=== PATIENT | female | born 1990 | race African-American/Black ===

== ENCOUNTER 2017-03-09 08:21 | Emergency (ER) | payer MEDICAID, OTHER ==
[~2017-03-09] VITALS: Ht 157.5 cm; Wt 102.1 kg
[~2017-03-09 08:21] MED LIST: BACTRIM DS TAB1 EAC1 ORAL; BENADRYL50 MG ORAL; CLOTRIMAZOLE AF30 GM TOP; CLOTRIMAZOLE AF30 GM TOPIC; COLACE100 MG ORAL; DOC-Q-LACE100 M1 ORAL; HYDROCODON-ACE1 EA15 ORAL; HYDROCORTISONE28 G2 TP; IBUPROFEN600 MG ORAL; KEFLEX500 MG ORAL; NKM; NORCO 5-325 TA1 EACH ORAL; PRENATAL VITAM1 EAC4 PO; REGLAN10 MG ORAL; TRAMADOL HCL50 MG ORAL; TYLENOL325 MG ORAL
--- NOTE | 2017-03-09 08:56 | Emergency Room Report ---
History of Present Illness General Chief Complaint: Upper Respiratory Illness Source: Patient Present Illness HPI Patient presents with 2 weeks of upper respiratory symptoms and now with diarrhea. The diarrhea has been green. She's on her period right now and denies dysuria. Her has heard her wheezing (she has never used an inhaler in the past). The cough is keeping her awake at night. She states her son came home with an upper respiratory infection and she got this from him. She is able to keep down fluids. There is no vomiting. Just a slight sore throat. No chest pain, palpitations, headache. Achiness. Allergies: Uncoded Allergies: AMPICILLIN (Allergy, Severe, Anaphylaxis, 08/17/12) Patient History Past Medical History: see triage record Social History Narrative raising 2 children Last Menstrual Period: now Now: No Reviewed Nursing Documentation: PMH: Agreed, PSxH: Agreed Nursing Documentation-PMH Past Medical History: No Stated History Review of Systems All Other Systems: negative except mentioned in HPI Physical Exam Vital Signs Date Time Temp Pulse Resp B/P Pulse Ox O2 Delivery O2 Flow Rate FiO2 03/09/17 08:27 97.7 82 18 97 Room Air Sp02 EP Interpretation: reviewed, normal General Appearance: well appearing, no apparent distress, GCS 15 Head: normocephalic, atraumatic Eyes: bilateral eye PERRL, bilateral eye normal inspection ENT: hearing grossly normal, normal voice, TMs + canals normal, moist mucus membranes, pharyngeal erythema Neck: full range of motion, supple Respiratory: lungs clear, normal breath sounds, no respiratory distress, speaking full sentences Cardiovascular #1: regular rate, rhythm Gastrointestinal: normal bowel sounds, non tender, soft, no mass, overweight Musculoskeletal: digits/nails normal, gait/station normal, normal range of motion Neurologic: alert, grossly normal Psychiatric: mood/affect normal Skin: no rash Medical Decision Making Diagnostic Impression: Primary Impression: Viral syndrome ER Course The patient presents with 2 weeks of upper respiratory symptomatology and now with diarrhea. She denies any diarrhea and is not complaining of abdominal pain. There is no exudative pharyngitis at this time. The patient is nontoxic and also is not dehydrated. The combination suggests a viral syndrome. The patient will be treated symptomatically. Because of the allegations she's been wheezing at night albuterol will be added. She was instructed on how to use an inhaler. The patient is stable for outpatient observation and treatment. Last Vital Signs Date Time Temp Pulse Resp B/P Pulse Ox O2 Delivery O2 Flow Rate FiO2 03/09/17 09:15 97.7 18 115/70 97 Room Air 03/09/17 08:43 82 Status: unchanged Disposition: HOME, SELF-CARE Condition: Stable Scripts Chlorpheniramine Maleate (Chlorpheniramine Maleate) 4 Mg Tablet 4 MG PO Q6HR Y for congestion, #10 TAB Prov: Jose Herron M.D. 03/09/17 Ibuprofen* (MOTRIN*) 600 Mg Tablet 600 MG ORAL Q6H Y for For Pain, #16 TAB Prov: Jose Herron M.D. 03/09/17 Albuterol Sulfate* (ALBUTEROL SULFATE MDI*) 8.5 Gm Hfa.aer.ad 2 PUFF INH Q6H Y for wheezing/cough, #1 EA 0 Refills Prov: Jose Herron M.D. 03/09/17 Codeine/Promethazine Hcl* (PROMETHAZINE-CODEINE SYRUP*) 118 Ml Syrup 5 ML ORAL Q6H Y for For Cough, #60 ML 0 Refills Prov: Jose Herron M.D. 03/09/17 Jose Herron M.D. Mar 09, 2017 08:56
[2017-03-09] MEDS ORDERED: IBUPROFEN600 MG ORAL (09:01)
[2017-03-09] MEDS ORDERED: PROMETHAZINE-C118 M1 ORAL (09:01)
[2017-03-09] MEDS ORDERED: CHLORPHENIRAMINE4 M1 PO (09:01)
[2017-03-09] MEDS ORDERED: ALBUTEROL SULF8.5 GM INH (09:01)
[2017-03-09 09:15] VITALS: BP 115/70
== END 2017-03-09 09:15 | disposition home or self-care (01) ==
LOC: EMR 09:04
DX: B34.9 Viral infection, unspecified (principal); Z88.0 Allergy status to penicillin
CPT/HCPCS: 99284

== ENCOUNTER 2017-05-05 08:15 | Emergency (ER) | payer OTHER ==
[~2017-05-05] VITALS: Ht 157.5 cm; Wt 108.9 kg
[~2017-05-05 08:15] MED LIST changes: +ALBUTEROL SULF8.5 GM INH; +CHLORPHENIRAMINE4 M1 PO; +PROMETHAZINE-C118 M1 ORAL
--- NOTE | 2017-05-05 08:37 | Emergency Room Report ---
History of Present Illness General Chief Complaint: Vaginal Source: Patient Present Illness HPI Patient is a 27-year-old female presented after increased vaginal bleeding. Patient reported being approximately 9 months. As she currently breast-feeding. Patient stated that she has not been feeling dizzy or lightheaded. She reported having moderate bleeding. As she hadn't having reported continued bleeding for approximately one month. Patient had been continued to take vitamins. Allergies: Uncoded Allergies: AMPICILLIN (Allergy, Severe, Anaphylaxis, 08/17/12) Patient History Past Medical History: see triage record Last Menstrual Period: now Reviewed Nursing Documentation: PMH: Agreed, PSxH: Agreed Nursing Documentation-PMH Past Medical History: No Stated History Review of Systems All Other Systems: negative except mentioned in HPI Physical Exam Vital Signs Date Time Temp Pulse Resp B/P Pulse Ox O2 Delivery O2 Flow Rate FiO2 05/05/17 08:21 98.2 89 18 117/79 100 Room Air Sp02 EP Interpretation: reviewed, normal General Appearance: normal inspection, well appearing, no apparent distress, alert, GCS 15, non-toxic, obese Head: atraumatic ENT: normal ENT inspection, hearing grossly normal, normal voice Neck: normal inspection, full range of motion, supple, no bony tend Respiratory: normal inspection, lungs clear, normal breath sounds, no respiratory distress, no retraction, no wheezing Cardiovascular #1: regular rate, rhythm, no edema Gastrointestinal: normal inspection, normal bowel sounds, non tender, soft, no guarding, no hernia Genitourinary: no CVA tenderness Musculoskeletal: normal inspection, back normal, normal range of motion Neurologic: normal inspection, alert, oriented x3, responsive, shipping and receiving operator III-XII nml as tested, speech normal Psychiatric: normal inspection, judgement/insight normal, mood/affect normal Skin: normal inspection, normal color, no rash Medical Decision Making ER Course Patient presented for vaginal bleeding. Differential diagnosis included was not limited to threatened , retained products of conception, fibroid uterus, menorrhagia, coagulopathy.Because of complexity of patient's case laboratory testing and imaging studies were ordered. Patient noted have symptoms consistent with menometrorrhagia. Laboratory testing was notable for adequate hemoglobin. The patient is advised to follow up with primary care doctor in 1-2 days. Patient is advised to return if any worsening condition or if any changes in status that are concerning. Last Vital Signs Date Time Temp Pulse Resp B/P Pulse Ox O2 Delivery O2 Flow Rate FiO2 05/05/17 08:21 98.2 89 18 117/79 100 Room Air Status: improved Disposition: HOME, SELF-CARE Condition: Stable Fernando Julain May 05, 2017 08:37
[2017-05-05] MEDS ORDERED: Tubing IV Cassette IV ONE (08:53)
[2017-05-05 09:08] LABS: APPEARANCE,URINE CLEAR; BASOPHILS % (AUTO) 0.8 % (0.0-2.0); KETONES,URINE NEGATIVE (NEGATIVE); LEUKOCYTE ESTERASE ,URINE NEGATIVE (NEGATIVE); LYMPHOCYTES % (AUTO) 36.7 % (20.0-45.0); MEAN CORPUSCULAR HEMOGLOBIN 25.3 PG (27.0-31.0); MEAN CORPUSCULAR HGB CONC 31.9 G/DL (32.0-36.0); MEAN CORPUSCULAR VOLUME 79 FL (80-99); MEAN PLATELET VOLUME 7.2 FL (6.5-10.1); NEUTROPHILS % (AUTO) 53.6 % (45.0-75.0); NITRITE,URINE NEGATIVE (NEGATIVE); PH,URINE 7 (4.5-8.0); PLATELET COUNT 312 K/UL (150-450); PROTEIN,URINE NEGATIVE (NEGATIVE); RED BLOOD COUNT 4.56 M/UL (4.20-5.40); RED CELL DISTRIBUTION WIDTH 13.4 % (11.6-14.8); UROBILINOGEN,URINE NORMAL MG/DL (0.0-1.0); WHITE BLOOD COUNT 7.6 K/UL (4.8-10.8)
[2017-05-05 09:14] LABS: ALANINE AMINOTRANSFERASE 14 U/L (3-33); ALBUMIN/GLOBULIN RATIO 1.1 (1.0-2.7); ANION GAP 15 (5-15); ASPARTATE AMINO TRANSFERASE 13 U/L (5-40); CARBON DIOXIDE 24 mEQ/L (20-30); CHLORIDE 99 mEQ/L (98-107); CREATININE 0.6 mg/dL (0.5-0.9); GLOMERULAR FILTRATION RATE > 60 mL/min (>60); HEMOLYSIS 0; LIPASE 19 U/L (< 60); POTASSIUM 3.7 mEQ/L (3.4-4.9); SODIUM 138 mEQ/L (135-145); TOTAL PROTEIN 7.8 g/dL (6.6-8.7)
[2017-05-05 09:17] LABS: PROTHROMBIN TIME 10.1 SEC (9.30-11.50)
[2017-05-05 09:19] LABS: BACTERIA,URINE FEW /HPF; RBC,URINE 20-30 /HPF (0 - 2); SQUAMOUS EPITHELIAL CELL,UR FEW /LPF (NONE/OCC); WBC,URINE 0-2 /HPF (0 - 2)
[2017-05-05 09:30] VITALS: BP 126/87
[2017-05-05 09:45] VITALS: BP 126/87
== END 2017-05-05 09:46 | disposition home or self-care (01) ==
LOC: EMR 08:41
DX: N93.9 Abnormal uterine and vaginal bleeding, unspecified (principal); Z88.0 Allergy status to penicillin
CPT/HCPCS: 36415; 80053; 81003; 83690; 84702; 85025; 85610; 85730; 96374; 99284; J7040

== ENCOUNTER 2017-08-14 08:57 | Emergency (ER) | payer MEDICAID, OTHER ==
[~2017-08-14] VITALS: Ht 157.5 cm; Wt 116.1 kg
--- NOTE | 2017-08-14 09:45 | Emergency Room Report ---
History of Present Illness General Chief Complaint: Skin Rash/Abscess Source: Patient Present Illness HPI Patient presents with complaints of 2 areas on her skin area better concerning patient complains of an infection in the back of her neck she also noticed a possible infection in between the breasts The neck discomfort/rash has been off-and-on over the past 2 months Patient also noticed the area in between the breast area over the past 6-8 weeks Denies any fevers or chills Denies any discharge Denies any chest pain or shortness of breath Allergies: Uncoded Allergies: AMPICILLIN (Allergy, Severe, Anaphylaxis, 08/17/12) Patient History Past Medical History: see triage record Pertinent Family History: none Last Menstrual Period: Aig 25 Now: No Reviewed Nursing Documentation: PMH: Agreed, PSxH: Agreed Nursing Documentation-PMH Past Medical History: No Stated History Review of Systems All Other Systems: negative except mentioned in HPI Physical Exam Vital Signs Date Time Temp Pulse Resp B/P (MAP) Pulse Ox O2 Delivery O2 Flow Rate FiO2 08/14/17 09:05 97.9 91 12 132/88 99 Room Air Sp02 EP Interpretation: reviewed, normal General Appearance: well appearing, no apparent distress Head: normocephalic, atraumatic Eyes: bilateral eye PERRL, bilateral eye EOMI ENT: hearing grossly normal, normal pharynx, TMs + canals normal, uvula midline Neck: full range of motion, supple Respiratory: chest non-tender, lungs clear Cardiovascular #1: regular rate, rhythm Musculoskeletal: normal inspection Neurologic: alert, oriented x3, responsive Skin: other - The region in the neck posteriorly, patient shows increased thickening area of the skin fold no obvious fluctuance or erythema, the area just in the midsternal him mildly deviated on the left aspect, small erythematous skin tag/lesion, does not appear vascular no obvious fluctuance, fairly well localized , Lymphatic: no adenopathy Medical Decision Making Diagnostic Impression: Primary Impression: Rash and other nonspecific skin eruption ER Course The areas in question are somewhat nonspecific The area in the posterior neck could be in line with a small skin break resulting in a early cellulitis The lesion in between the breast area is possibly secondary to skin irritation I do not suspect obvious infectious pathology Dermatology followup is required for further evaluation of carcinomatous lesions , Last Vital Signs Date Time Temp Pulse Resp B/P (MAP) Pulse Ox O2 Delivery O2 Flow Rate FiO2 08/14/17 09:05 97.9 91 12 132/88 99 Room Air Status: unchanged Disposition: HOME, SELF-CARE Condition: Stable Referrals: [facility] NIXON,REFERRING (PCP) Additional Instructions: Patient is provided with the discharge instructions notified to follow up with primary doctor in the next 2-3 days otherwise return to the er with any worsening symptoms. Please note that this report is being documented using [employer] technology. This can lead to erroneous entry secondary to incorrect interpretation by the dictating instrument. ZANDRA RAE D.O. Aug 14, 2017 09:45
[2017-08-14] MEDS ORDERED: BACTRIM DS TAB1 EAC1 ORAL (09:47)
[2017-08-14] MEDS ORDERED: NYSTATIN-TRIAMC15 G2 TP (09:48)
[2017-08-14 09:57] VITALS: BP 128/85
== END 2017-08-14 09:57 | disposition home or self-care (01) ==
LOC: EMR 09:21
DX: R21 Rash and other nonspecific skin eruption (principal); Z88.0 Allergy status to penicillin
CPT/HCPCS: 99282

== ENCOUNTER 2017-08-26 09:42 | Emergency (ER) | payer MEDICAID ==
[~2017-08-26] VITALS: Ht 157.5 cm; Wt 116.1 kg
[~2017-08-26 09:42] MED LIST changes: +NYSTATIN-TRIAMC15 G2 TP
[2017-08-26 09:50] VITALS: BP 120/70
[2017-08-26] MEDS ORDERED: IBUPROFEN600 MG ORAL ×2 (10:25→10:44)
[2017-08-26] MEDS ORDERED: Ketorolac 60mg Inj IM ONE (10:30)
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
== END 2017-08-26 10:45 | disposition home or self-care (01) ==
LOC: EMR 10:36
DX: M54.2 Cervicalgia (principal); R07.9 Chest pain, unspecified; Z88.8 Allergy status to other drugs, medicaments and biological substances; M54.5 Low back pain
CPT/HCPCS: 96372; 99284

== ENCOUNTER 2017-11-03 08:59 | Emergency (ER) | payer MEDICAID ==
[~2017-11-03] VITALS: Ht 157.5 cm; Wt 116.1 kg
[2017-11-03 09:09] VITALS: BP 117/73
[2017-11-03] MEDS ORDERED: NKM (09:19)
[2017-11-03] MEDS ORDERED: ADULT WAL-100 MG/5 M ORAL ×2 (09:25→09:29)
[2017-11-03] MEDS ORDERED: CLARITIN10 M2 ORAL ×2 (09:25→09:29)
[2017-11-03 09:39] VITALS: BP 117/73
--- NOTE | 2017-11-07 08:14 | Emergency Room Report ---
History of Present Illness General Chief Complaint: Upper Respiratory Illness Source: Patient Present Illness HPI Patient is a 27 year old female who presented to the emergency department for increased nasal congestion, and nonproductive cough gradual onset over the past two days. Son had been sick with similar symptoms. She denied or . She denied any chest pain or leg swelling. Cough was intermittent. She had clear nasal discharge. Allergies: Coded Allergies: AMPICILLIN (Verified Allergy, Severe, Anaphylaxis, 11/03/17) Uncoded Allergies: AMPICILLIN (Allergy, Severe, Anaphylaxis, 08/17/12) Patient History Past Medical History: old chart reviewed Last Menstrual Period: - Now: No Reviewed Nursing Documentation: PMH: Agreed, PSxH: Agreed Nursing Documentation-PMH Past Medical History: No Stated History Review of Systems All Other Systems: negative except mentioned in HPI Physical Exam Vital Signs Date Time Temp Pulse Resp B/P (MAP) Pulse Ox O2 Delivery O2 Flow Rate FiO2 11/03/17 09:09 97.9 88 20 117/73 100 Room Air General Appearance: well appearing, no apparent distress, alert, GCS 15 Head: normocephalic, atraumatic ENT: hearing grossly normal, normal pharynx, normal voice, TMs + canals normal , uvula midline, other - rhinorhea Neck: full range of motion, supple Respiratory: normal inspection, lungs clear, normal breath sounds, no respiratory distress, speaking full sentences Cardiovascular #1: normal inspection, normal peripheral pulses, regular rate, rhythm, no edema Gastrointestinal: normal inspection Musculoskeletal: normal inspection, no calf tenderness Neurologic: normal inspection, alert, oriented x3, responsive, public health outreach worker III-XII nml as tested, normal gait Psychiatric: mood/affect normal Skin: no rash Medical Decision Making Diagnostic Impression: Primary Impression: Viral respiratory infection ER Course Patient presented for increased cough and nasal congestion. Differential diagnosis included but was not limited to sinusitis. pneumonia, congestive heart failure, bronchitis, asthma among others. Patient was noted to have a benign exam. Patient doesn't appear to have any respiratory difficulty and has a benign exam and history. Patient appears to have a viral upper respiratory infection. Patient was given a prescription for cough syrup and antihistamine. She was advised to recheck with her physician in 2-3 days. She was to return for high fever, increased difficulty breathing, chest pain or other concerns. Last Vital Signs Date Time Temp Pulse Resp B/P (MAP) Pulse Ox O2 Delivery O2 Flow Rate FiO2 11/03/17 09:39 97.9 88 20 117/73 100 Room Air Status: improved Disposition: HOME, SELF-CARE Condition: Stable Scripts Guaifenesin* (ADULT WAL-TUSSIN*) 100 Mg/5 Ml Liquid 10 ML ORAL Q4H, #120 ML Prov: Fernando Julian 11/03/17 Loratadine (CLARITIN) 10 Mg Capsule 10 MG ORAL DAILY, #30 CAP Prov: Fernando Julian 11/03/17 Patient Instructions: Upper Respiratory Infection, Adult Fernando Julian Nov 07, 2017 08:14
== END 2017-11-03 09:40 | disposition home or self-care (01) ==
LOC: EMR 09:20
DX: J06.9 Acute upper respiratory infection, unspecified (principal); B34.9 Viral infection, unspecified; Z88.0 Allergy status to penicillin
CPT/HCPCS: 99283

== ENCOUNTER 2017-12-07 06:16 | Emergency (ER) | payer MEDICAID ==
[~2017-12-07] VITALS: Ht 157.5 cm; Wt 116.1 kg
[~2017-12-07 06:16] MED LIST changes: +ADULT WAL-100 MG/5 M ORAL; +CLARITIN10 M2 ORAL
[2017-12-07 06:30] VITALS: BP 135/89
[2017-12-07] MEDS ORDERED: FLOXIN10 ML BOTH EARS (06:47)
[2017-12-07 06:50] VITALS: BP 132/89
[2017-12-07 06:55] VITALS: BP 132/89
--- NOTE | 2017-12-07 08:19 | Emergency Room Report ---
History of Present Illness General Chief Complaint: Earache Source: Patient Present Illness HPI 27-year-old female presents ED complaining of bilateral ear pain x 3 days. Right worse than left., Throbbing, nonradiating. Denies any discharge. Denies any sore throat or cough. Denies any sick contacts or recent travel. No other aggravating relieving factors. Denies any other associated symptoms Allergies: Coded Allergies: AMPICILLIN (Verified Allergy, Severe, Anaphylaxis, 11/03/17) Patient History Past Medical History: none Past Surgical History: none Pertinent Family History: none Social History: Denies: smoking, alcohol use, drug use Last Menstrual Period: 2016 Now: No Immunizations: UTD Reviewed Nursing Documentation: PMH: Agreed, PSxH: Agreed Nursing Documentation-PMH Past Medical History: No Stated History Review of Systems All Other Systems: negative except mentioned in HPI Physical Exam Vital Signs Date Time Temp Pulse Resp B/P (MAP) Pulse Ox O2 Delivery O2 Flow Rate FiO2 12/07/17 06:23 98.2 91 15 141/98 99 Room Air Sp02 EP Interpretation: reviewed, normal General Appearance: no apparent distress, alert, GCS 15, non-toxic Head: normocephalic Eyes: bilateral eye normal inspection, bilateral eye PERRL ENT: hearing grossly normal, normal pharynx, no angioedema, normal voice, other - swollen ear canals bilaterally. TM unremarkable Neck: full range of motion, supple/symm/no masses Respiratory: chest non-tender, lungs clear, normal breath sounds, speaking full sentences Cardiovascular #1: regular rate, rhythm, no edema Gastrointestinal: normal inspection Rectal: deferred Genitourinary: no CVA tenderness Musculoskeletal: normal inspection Neurologic: alert, oriented x3, responsive, motor strength/tone normal, sensory intact, speech normal Psychiatric: normal inspection Skin: normal inspection Lymphatic: normal inspection Medical Decision Making Diagnostic Impression: Primary Impression: Otitis externa Qualified Codes: H60.503 - Unspecified acute noninfective otitis externa, bilateral ER Course Hospital Course 27-year-old F presents to ED with pain bilateral ears Differential diagnoses include: TM perforation, otitis externa, otitis media Clinical course Patient placed on stretcher. After initial history, physical exam reveals a female in no acute distress. bilateral ear canal swollen, erythematous. TM unremarkable. consistent with otitis externa Diagnosis - otitis externa Stable and discharged to home with Rx ofloxacin otic. Followup with PMD. Return to ED if symptoms recur or worsen Last Vital Signs Date Time Temp Pulse Resp B/P (MAP) Pulse Ox O2 Delivery O2 Flow Rate FiO2 12/07/17 06:55 98.2 79 17 132/89 99 Room Air Status: improved Disposition: HOME, SELF-CARE Condition: Stable Scripts Ofloxacin (Floxin) 10 Ml Drops 10 DROP BOTH EARS DAILY for 7 Days, ML Prov: ADALI CORTEZ M.D. 12/07/17 Referrals: [facility],REFERRING (PCP) Patient Instructions: Otitis Externa, [id number] ADALI CORTEZ M.D. Dec 07, 2017 08:19
== END 2017-12-07 06:55 | disposition home or self-care (01) ==
LOC: EMR 06:38
DX: H60.93 Unspecified otitis externa, bilateral (principal); Z88.0 Allergy status to penicillin
CPT/HCPCS: 99283

== ENCOUNTER 2018-02-16 16:31 | Emergency (ER) | payer MEDICAID ==
[~2018-02-16] VITALS: Ht 157.5 cm; Wt 119.3 kg
[~2018-02-16 16:31] MED LIST changes: +FLOXIN10 ML BOTH EARS
--- NOTE | 2018-02-16 17:07 | Emergency Room Report ---
History of Present Illness General Chief Complaint: Foreign Body Source: Patient Present Illness HPI 28-year-old female presents to the emergency department complaining of retained cotton from Q-tip since this morning. Patient reports she was cleaning her ear and when she pulled the Q-tip out the cotton was missing. Patient states she attempted to remove the cotton with a remaining piece of toothpick but was unsuccessful. Patient denies pain, discharge, fevers, chills. Patient denies loss of hearing or muffled hearing. This was recently treated for otitis externa . Denies CP, Palpitations, LOC, AMS, dizziness, Changes in Vision, Sensation, paresthesias, or a sudden severe headache. Allergies: Coded Allergies: AMPICILLIN (Verified Allergy, Severe, Anaphylaxis, 11/03/17) Patient History Past Medical History: see triage record, asthma Past Surgical History: none Pertinent Family History: none Last Menstrual Period: 2-25 Now: No Reviewed Nursing Documentation: PMH: Agreed, PSxH: Agreed Review of Systems All Other Systems: negative except mentioned in HPI Physical Exam Vital Signs Date Time Temp Pulse Resp B/P (MAP) Pulse Ox O2 Delivery O2 Flow Rate FiO2 02/16/18 16:42 98.4 86 18 123/72 97 Room Air 98.4 Sp02 EP Interpretation: reviewed, normal General Appearance: no apparent distress, alert, GCS 15, non-toxic Head: normocephalic, atraumatic Eyes: bilateral eye normal inspection, bilateral eye PERRL ENT: hearing grossly normal, normal voice, other - obvious cotton Fb in the Right ear. no evidence of infection or trauma to the external canal. Neck: full range of motion Respiratory: lungs clear, speaking full sentences Cardiovascular #1: regular rate, rhythm Musculoskeletal: back normal, gait/station normal, normal range of motion Neurologic: alert, oriented x3, responsive, normal gait, speech normal, grossly normal Psychiatric: judgement/insight normal Skin: normal color, no rash, warm/dry, well hydrated Lymphatic: no adenopathy Procedures Additional Procedure Procedure Narrative After verbal consent obtained by PT. Single attempt with alligator forceps was made to remove foreign body and was successful by Dr. Julian Medical Decision Making PA Attestation Dr. Julian is my supervising Physician whom patient management has been discussed with. Diagnostic Impression: Primary Impression: Ear foreign body Qualified Codes: T16.1XXA - Foreign body in right ear, initial encounter ER Course 28-year-old female presents to the emergency department complaining of retained cotton from Q-tip since this morning. Patient reports she was cleaning her ear and when she pulled the Q-tip out the cotton was missing. Patient states she attempted to remove the cotton with a remaining piece of toothpick but was unsuccessful. Patient denies pain, discharge, fevers, chills. Patient denies loss of hearing or muffled hearing. This was recently treated for otitis externa . Denies CP, Palpitations, LOC, AMS, dizziness, Changes in Vision, Sensation, paresthesias, or a sudden severe headache. Ddx considered but are not limited to OM, OE, mastoiditis, TM perforation, FB Vital signs: are WNL, pt. is afebrile H&PE are most consistent with foreign body of the left ear ORDERS: none required at this time, the diagnosis is clinical -OTOSCOPY: obvious cotton Fb in the Right ear. no evidence of infection or trauma to the external canal. ED INTERVENTIONS: after verbal consent obtained by PT. Single attempt with alligator forceps was made to remove foreign body and was successful by Dr. Julian DISCHARGE: At this time pt. is stable for d/c to home. Will provide printed patient care instructions, and any necessary prescriptions. Care plan and follow up instructions have been discussed with the patient prior to discharge. D/w followup with ENT specialist for removal. Last Vital Signs Date Time Temp Pulse Resp B/P (MAP) Pulse Ox O2 Delivery O2 Flow Rate FiO2 02/16/18 16:42 98.4 86 18 123/72 97 Room Air 98.4 Disposition: HOME, SELF-CARE Condition: Stable Patient Instructions: Ear Foreign Body Additional Instructions: Take medications as directed. Follow up with a Primary Care Provider in 3-5 days, even if your symptoms have resolved. --Please review list of primary care clinics, if you do not already have a primary care provider Return sooner to ED if new symptoms occur, or current symptoms become worse. - Please note that this Emergency Department Report was dictated using [employer] teacher technology software, occasionally this can lead to erroneous entry secondary to interpretation by the dictation equipment. Berta Santos Feb 16, 2018 17:07
[2018-02-16 17:15] VITALS: BP 123/72
[2018-02-16 17:17] VITALS: BP 123/72
== END 2018-02-16 17:00 | disposition home or self-care (01) ==
LOC: EMR 17:00
DX: T16.1XXA Foreign body in right ear, initial encounter (principal); Z88.1 Allergy status to other antibiotic agents; X58.XXXA Exposure to other specified factors, initial encounter; Y92.9 Unspecified place or not applicable
CPT/HCPCS: 99282

== ENCOUNTER 2018-11-05 08:13 | Emergency (ER) | payer MEDICAID ==
[~2018-11-05] VITALS: Ht 157.5 cm; Wt 98.0 kg
[2018-11-05 08:34] VITALS: BP 110/70
--- NOTE | 2018-11-05 08:54 | Emergency Room Report ---
History of Present Illness General Chief Complaint: Upper Respiratory Illness Source: Patient Present Illness ZORAIDA Buckley is a healthy 28 yo female with cold symptoms for 1-2 days. She had nasal congestion, cough, nausea, diarrhea and mild chest pain with cough. NO pain currently. No fever. NO chills. No abd pain. Two children at home with similar symptoms. Allergies: Coded Allergies: AMPICILLIN (Verified Allergy, Severe, Anaphylaxis, 11/03/17) Patient History Past Medical History: see triage record Social History: Denies: smoking Last Menstrual Period: 10/02/18 Reviewed Nursing Documentation: PMH: Agreed; PSxH: Agreed Nursing Documentation-PMH Past Medical History: No Stated History Review of Systems Constitutional: Denies: fever, malaise ENT: Reports: ear pain, nose congestion; Denies: throat pain Respiratory: Reports: cough; Denies: shortness of breath, wheezing Cardiovascular: Reports: chest pain Gastrointestinal: Denies: abdominal pain Musculoskeletal: Denies: back pain Neurological: Denies: headache Physical Exam Vital Signs Date Time Temp Pulse Resp B/P (MAP) Pulse Ox O2 Delivery O2 Flow Rate FiO2 11/05/18 08:20 98.1 87 18 110/70 95 Room Air Sp02 EP Interpretation: reviewed, normal, other - well-appearing, General Appearance: no apparent distress, alert, GCS 15, non-toxic Head: normocephalic, atraumatic Eyes: bilateral eye normal inspection ENT: hearing grossly normal, normal pharynx, no angioedema, normal voice, TMs + canals normal Neck: full range of motion, supple/symm/no masses Respiratory: chest non-tender, lungs clear, normal breath sounds, speaking full sentences Cardiovascular #1: regular rate, rhythm, no edema Gastrointestinal: normal bowel sounds, non tender, soft, non-distended, no guarding, no rebound Rectal: deferred Genitourinary: normal inspection, no CVA tenderness Musculoskeletal: back normal, gait/station normal, normal range of motion, non- tender, calf tenderness Neurologic: alert, oriented x3, responsive, motor strength/tone normal, sensory intact, speech normal Psychiatric: judgement/insight normal, memory normal, mood/affect normal, no suicidal/homicidal ideation Skin: normal color, no rash, warm/dry, well hydrated Lymphatic: no adenopathy Medical Decision Making Diagnostic Impression: Primary Impression: Viral respiratory infection Additional Impression: URI (upper respiratory infection) ER Course Ms. Holden presents with URI without otitis, pneumonia or pharyngitis. rx: loratadine She appears well and healthy on today's exam. Last Vital Signs Date Time Temp Pulse Resp B/P (MAP) Pulse Ox O2 Delivery O2 Flow Rate FiO2 11/05/18 08:34 87 18 Room Air 11/05/18 08:34 98.1 110/70 95 Disposition: HOME, SELF-CARE Condition: Stable Referrals: [facility],REFERRING (PCP) Claudia Holden MD Nov 05, 2018 08:54
[2018-11-05] MEDS ORDERED: LORATADINE10 M2 PO (08:55)
[2018-11-05 09:02] VITALS: BP 112/72
== END 2018-11-05 09:04 | disposition home or self-care (01) ==
LOC: EMR 08:30
DX: J06.9 Acute upper respiratory infection, unspecified (principal); B34.9 Viral infection, unspecified; Z88.0 Allergy status to penicillin
CPT/HCPCS: 99282

== ENCOUNTER 2019-01-24 10:26 | Emergency (ER) | payer MEDICAID ==
[~2019-01-24] VITALS: Ht 157.5 cm; Wt 81.6 kg
[~2019-01-24 10:26] MED LIST changes: +LORATADINE10 M2 PO
--- NOTE | 2019-01-24 10:43 | NUR ---
ED Nurse Note: Pt came into the Er w/ complaints of abdominal pain w/ n,d,v since last night. Pt is complaining of 10/10 pain in the abdomen. Non radiating. A + O x4. Ambulatory. Skin warm to touch. Pt states that she had 10 episodes of vomiting and diarrhea.
[2019-01-24 10:45] VITALS: BP 115/70
[2019-01-24] MEDS ORDERED: Metoclopramide 10mg/2ml Inj IVP ONE (11:00)
[2019-01-24 11:12] LABS: HEMATOCRIT 34.4 % (37.0-47.0); HEMOGLOBIN 10.3 G/DL (12.0-16.0); MEAN CORPUSCULAR VOLUME 72 FL (80-99); PLATELET COUNT 327 K/UL (150-450); RED BLOOD COUNT 4.79 M/UL (4.20-5.40); RED CELL DISTRIBUTION WIDTH 15.6 % (11.6-14.8); WHITE BLOOD COUNT 12.3 K/UL (4.8-10.8)
[2019-01-24 11:24] LABS: ANION GAP 9 mmol/L (5-15); BLOOD UREA NITROGEN 11 mg/dL (7-18); CALCIUM 9.2 MG/DL (8.5-10.1); CARBON DIOXIDE 25 MMOL/L (21-32); CHLORIDE 103 MMOL/L (98-107); CREATININE 0.8 MG/DL (0.55-1.30); POTASSIUM 4.1 MMOL/L (3.5-5.1); SODIUM 137 MMOL/L (136-145)
[2019-01-24 11:28] LABS: ALANINE AMINOTRANSFERASE 19 U/L (12-78); ALBUMIN 3.7 G/DL (3.4-5.0); ALBUMIN/GLOBULIN RATIO 0.8 (1.0-2.7); ALKALINE PHOSPHATASE 84 U/L (46-116); ASPARTATE AMINO TRANSFERASE 11 U/L (15-37); BILIRUBIN,TOTAL 0.3 MG/DL (0.2-1.0)
[2019-01-24] MEDS ORDERED: ZOFRAN4 M1 ORAL (12:09)
[2019-01-24 12:16] VITALS: BP 116/75
--- NOTE | 2019-01-24 12:16 | NUR ---
ER DISCHARGE NOTE: Patient is cleared to be discharged per ERMD, pt is aox4, on room air, with stable vital signs. pt was given dc and prescription instructions, pt was able to verbalize understanding, pt id band and iv site removed without complications. pt is able to ambulate with steady gait. pt took all belongings.
--- NOTE | 2019-01-25 07:30 | Emergency Room Report ---
History of Present Illness General Chief Complaint: Abdominal Pain Source: Patient Present Illness HPI Patient presents with complaints of vomiting and diarrhea Reports multiple episodes of vomiting along with diarrhea since last night denies any chest pain or shortness of breath she has some diffuse abdominal cramping as well Patient's here with a family member who reports they ate outside yesterday and soon after that the patient became ill Denies any blood in the stool Denies any flank pain Allergies: Coded Allergies: AMPICILLIN (Verified Allergy, Severe, Anaphylaxis, 11/03/17) Patient History Past Medical History: see triage record Pertinent Family History: none Last Menstrual Period: 01/13/19 Reviewed Nursing Documentation: PMH: Agreed; PSxH: Agreed Nursing Documentation-PMH Past Medical History: No Stated History Review of Systems All Other Systems: negative except mentioned in HPI Physical Exam Vital Signs Date Time Temp Pulse Resp B/P (MAP) Pulse Ox O2 Delivery O2 Flow Rate FiO2 01/24/19 10:36 97.9 83 18 118/69 100 Room Air 01/24/19 10:45 100 Sp02 EP Interpretation: reviewed, normal General Appearance: well appearing, no apparent distress Head: normocephalic, atraumatic Eyes: bilateral eye PERRL, bilateral eye EOMI ENT: hearing grossly normal, normal pharynx, TMs + canals normal, uvula midline Neck: full range of motion, supple, no meningismus, no bony tend Respiratory: lungs clear, normal breath sounds, no rhonchi, no respiratory distress, no retraction, no accessory muscle use Cardiovascular #1: normal peripheral pulses, regular rate, rhythm, no edema, no gallop, no JVD, no murmur Gastrointestinal: normal bowel sounds, non tender, soft, no mass, no organomegaly, non-distended, no guarding, no hernia, no pulsatile mass, no rebound Genitourinary: no CVA tenderness Musculoskeletal: normal inspection Neurologic: oriented x3, responsive, biology specimen technician III-XII nml as tested, motor strength/ tone normal, sensory intact Psychiatric: mood/affect normal Skin: normal color, no rash, warm/dry, palpation normal Lymphatic: normal inspection, no adenopathy Medical Decision Making Diagnostic Impression: Primary Impression: vomiting Additional Impression: diarrhea ER Course With the patient's history and examination, multiple differentials considered, including but not limited to , ectopic , ovarian torsion, gastritis, cholecystitis, pancreatitis, appendicitis Given the vomiting and diarrhea gastrointestinal pathology also entertained patient had IV hydration and extensive blood work initiated Did not require initial imaging given her repeat examination Patient has done significantly better and stable for close outpatient follow-up Labs Test 01/24/19 10:36 01/24/19 11:38 White Blood Count 12.3 K/UL (4.8-10.8) Red Blood Count 4.79 M/UL (4.20-5.40) Hemoglobin 10.3 G/DL (12.0-16.0) Hematocrit 34.4 % (37.0-47.0) Mean Corpuscular Volume 72 FL (80-99) Mean Corpuscular Hemoglobin 21.6 PG (27.0-31.0) Mean Corpuscular Hemoglobin Concent 30.0 G/DL (32.0-36.0) Red Cell Distribution Width 15.6 % (11.6-14.8) Platelet Count 327 K/UL (150-450) Mean Platelet Volume 6.3 FL (6.5-10.1) Neutrophils (%) (Auto) % (45.0-75.0) Lymphocytes (%) (Auto) % (20.0-45.0) Monocytes (%) (Auto) % (1.0-10.0) Eosinophils (%) (Auto) % (0.0-3.0) Basophils (%) (Auto) % (0.0-2.0) Differential Total Cells Counted 100 Neutrophils % (Manual) 87 % (45-75) Lymphocytes % (Manual) 7 % (20-45) Monocytes % (Manual) 3 % (1-10) Eosinophils % (Manual) 0 % (0-3) Basophils % (Manual) 0 % (0-2) Band Neutrophils 3 % (0-8) Platelet Estimate Adequate Platelet Morphology Normal Hypochromasia 1+ Anisocytosis 1+ Microcytosis 1+ Sodium Level 137 MMOL/L (136-145) Potassium Level 4.1 MMOL/L (3.5-5.1) Chloride Level 103 MMOL/L (98-107) Carbon Dioxide Level 25 MMOL/L (21-32) Anion Gap 9 mmol/L (5-15) Blood Urea Nitrogen 11 mg/dL (7-18) Creatinine 0.8 MG/DL (0.55-1.30) Estimat Glomerular Filtration Rate > 60 mL/min (>60) Glucose Level 100 MG/DL (74-106) Calcium Level 9.2 MG/DL (8.5-10.1) Total Bilirubin 0.3 MG/DL (0.2-1.0) Aspartate Amino Transf (AST/SGOT) 11 U/L (15-37) Alanine Aminotransferase (ALT/SGPT) 19 U/L (12-78) Alkaline Phosphatase 84 U/L (46-116) Total Protein 8.3 G/DL (6.4-8.2) Albumin 3.7 G/DL (3.4-5.0) Globulin 4.6 g/dL Albumin/Globulin Ratio 0.8 (1.0-2.7) Lipase 64 U/L (73-393) Human Chorionic Gonadotropin, Qual Negative (NEGATIVE) Last Vital Signs Date Time Temp Pulse Resp B/P (MAP) Pulse Ox O2 Delivery O2 Flow Rate FiO2 01/24/19 12:16 98.0 66 18 116/75 100 Room Air 100 Status: improved Disposition: HOME, SELF-CARE Condition: Improved Scripts Ondansetron (Zofran) 4 Mg Tablet 4 MG ORAL Q6H PRN for Nausea & Vomiting, #12 TAB Prov: Heena Linton DO 01/24/19 Referrals: [facility],REFERRING (PCP) Patient Instructions: Nausea and Vomiting, Adult, [id number], Abdominal Pain , Adult, Diarrhea, Adult, [id number] Additional Instructions: Patient is provided with the discharge instructions notified to follow up with primary doctor in the next 2-3 days otherwise return to the er with any worsening symptoms. Please note that this report is being documented using ePAR technology. This can lead to erroneous entry secondary to incorrect interpretation by the dictating instrument. Heena Linton DO Jan 25, 2019 07:30
== END 2019-01-24 12:17 | disposition home or self-care (01) ==
LOC: EMR 11:41
DX: R11.10 Vomiting, unspecified (principal); R19.7 Diarrhea, unspecified; Z88.0 Allergy status to penicillin
CPT/HCPCS: 36415; 80053; 83690; 84703; 85007; 85025; 96361; 96374; 99284; J2765

== ENCOUNTER 2019-04-27 08:50 | Emergency (ER) | payer MEDICAID ==
[~2019-04-27] VITALS: Ht 157.5 cm; Wt 97.1 kg
[~2019-04-27 08:50] MED LIST changes: +ZOFRAN4 M1 ORAL
[2019-04-27 09:06] VITALS: BP 123/88
--- NOTE | 2019-04-27 09:06 | NUR ---
ED Nurse Note: PT FROM HOME CAME IN DUE TO N/V AND DIARRHEA STARTED LAST NIGHT. PT STATES THERE IS A SMALL AMOUNT OF STREAK BLOOD IN HER STOOL. PT AAO X4, AMBULATORY WITH NON LABORED BREATHING.
--- NOTE | 2019-04-27 09:24 | Emergency Room Report ---
History of Present Illness General Chief Complaint: Nausea, Vomiting, and Diarrhea Source: Patient Present Illness HPI Patient is a 29-year-old female who presented after increased nausea and vomiting. Patient reports having eaten some food at [id number] and subsequently having vomiting as well as diarrhea. She denies any fever. She reports having nonbloody emesis. She reports having some watery stools with some blood when she is wiping. She denies any severe abdominal pain but reports having some increased pain to the left lower abdomen which she describes crampy in nature. Allergies: Coded Allergies: AMPICILLIN (Verified Allergy, Severe, Anaphylaxis, 11/03/17) Patient History Past Medical History: see triage record Last Menstrual Period: 5-17 Now: No Reviewed Nursing Documentation: PMH: Agreed; PSxH: Agreed Nursing Documentation-PMH Past Medical History: No Stated History Review of Systems All Other Systems: negative except mentioned in HPI Physical Exam Vital Signs Date Time Temp Pulse Resp B/P (MAP) Pulse Ox O2 Delivery O2 Flow Rate FiO2 04/27/19 08:59 98.6 71 20 132/70 (90) 100 Room Air Sp02 EP Interpretation: reviewed, normal General Appearance: normal inspection, well appearing, no apparent distress, alert, GCS 15, non-toxic Head: atraumatic ENT: normal ENT inspection, hearing grossly normal, normal voice Neck: normal inspection, full range of motion, supple, no bony tend Respiratory: normal inspection, lungs clear, normal breath sounds, no respiratory distress, no retraction, no wheezing Cardiovascular #1: regular rate, rhythm, no edema Gastrointestinal: normal inspection, normal bowel sounds, non tender, soft, no guarding, no hernia Genitourinary: no CVA tenderness Musculoskeletal: normal inspection, back normal, normal range of motion Neurologic: normal inspection, alert, oriented x3, responsive, composition floor layer III-XII nml as tested, speech normal Psychiatric: normal inspection, judgement/insight normal, mood/affect normal Skin: normal inspection, normal color, no rash Medical Decision Making ER Course Patient presented for abdominal pain. Differential diagnoses included ischemic bowel, appendicitis, perforated viscus, abdominal aortic aneurysm, inferior myocardial infarction, viral gastroenteritis among others. Because of complexity of patient's case laboratory tests were ordered. Last Vital Signs Date Time Temp Pulse Resp B/P (MAP) Pulse Ox O2 Delivery O2 Flow Rate FiO2 04/27/19 08:59 98.6 71 20 132/70 (90) 100 Room Air Fernando Julian MD April 27, 2019 09:23
[2019-04-27] MEDS ORDERED: Dicyclomine HCl 10mg/5ml oral soln ORAL ONE (09:30)
[2019-04-27] MEDS ORDERED: Lidocaine 2% Visc 15ml soln ORAL ONE (09:30)
[2019-04-27 09:59] LABS: APPEARANCE,URINE CLEAR; BILIRUBIN, URINE NEGATIVE (NEGATIVE); COLOR,URINE PALE YELLOW; GLUCOSE, URINE (UA) NEGATIVE (NEGATIVE); KETONES,URINE 1+ (NEGATIVE); LEUKOCYTE ESTERASE ,URINE NEGATIVE (NEGATIVE); NITRITE,URINE NEGATIVE (NEGATIVE); PH,URINE 8 (4.5-8.0); PROTEIN,URINE NEGATIVE (NEGATIVE); UROBILINOGEN,URINE NORMAL MG/DL (0.0-1.0)
[2019-04-27 10:03] LABS: BASOPHILS % (AUTO) 0.5 % (0.0-2.0); EOSINOPHILS % (AUTO) 0.4 % (0.0-3.0); HEMATOCRIT 31.5 % (37.0-47.0); HEMOGLOBIN 9.5 G/DL (12.0-16.0); LYMPHOCYTES % (AUTO) 20.3 % (20.0-45.0); MEAN CORPUSCULAR VOLUME 69 FL (80-99); MONOCYTES % (AUTO) 3.9 % (1.0-10.0); NEUTROPHILS % (AUTO) 74.8 % (45.0-75.0); PLATELET COUNT 285 K/UL (150-450); RED BLOOD COUNT 4.59 M/UL (4.20-5.40); RED CELL DISTRIBUTION WIDTH 15.7 % (11.6-14.8); WHITE BLOOD COUNT 6.7 K/UL (4.8-10.8)
[2019-04-27 10:10] LABS: ANION GAP 10 mmol/L (5-15); BLOOD UREA NITROGEN 6 mg/dL (7-18); CALCIUM 8.8 MG/DL (8.5-10.1); CARBON DIOXIDE 26 MMOL/L (21-32); CHLORIDE 104 MMOL/L (98-107); CREATININE 0.7 MG/DL (0.55-1.30); POTASSIUM 3.6 MMOL/L (3.5-5.1); SODIUM 139 MMOL/L (136-145)
[2019-04-27 10:13] LABS: ALANINE AMINOTRANSFERASE 22 U/L (12-78); ALBUMIN 3.7 G/DL (3.4-5.0); ALBUMIN/GLOBULIN RATIO 0.9 (1.0-2.7); ALKALINE PHOSPHATASE 74 U/L (46-116); ASPARTATE AMINO TRANSFERASE 17 U/L (15-37); BILIRUBIN,TOTAL 0.4 MG/DL (0.2-1.0)
[2019-04-27] MEDS ORDERED: FERROUS SULFAT325 MG ORAL (10:44)
[2019-04-27] MEDS ORDERED: DICYCLOMINE HCL10 MG ORAL (10:44)
[2019-04-27] MEDS ORDERED: ZOFRAN4 MG ORAL (10:44)
[2019-04-27 11:03] VITALS: BP 132/80
--- NOTE | 2019-04-27 11:03 | NUR ---
ER DISCHARGE NOTE: Patient is cleared to be discharged per ERMD, pt is aox4, on room air, with stable vital signs. pt was given dc and prescription instructions, pt was able to verbalize understanding, pt id band and iv site removed without complications. pt is able to ambulate with steady gait. pt took all belongings and left with her kids.
== END 2019-04-27 11:03 | disposition home or self-care (01) ==
LOC: EMR 09:31
DX: R11.2 Nausea with vomiting, unspecified (principal); R10.9 Unspecified abdominal pain; Z88.0 Allergy status to penicillin; R19.7 Diarrhea, unspecified
CPT/HCPCS: 36415; 80053; 81003; 81025; 83690; 85025; 96361; 96374; 96375; 99284; J2405; S0028

== ENCOUNTER 2019-06-10 23:54 | Emergency (ER) | payer MEDICAID ==
[~2019-06-10] VITALS: Ht 157.5 cm; Wt 97.5 kg
[~2019-06-10 23:54] MED LIST changes: +DICYCLOMINE HCL10 MG ORAL; +FERROUS SULFAT325 MG ORAL; +ZOFRAN4 MG ORAL
[2019-06-11] MEDS ORDERED: PRENATABS RX T1 EACH PO (00:04)
[2019-06-11] MEDS ORDERED: PRENATAL 19 TA1 EAC1 PO ×2 (00:04→01:43)
--- NOTE | 2019-06-11 00:08 | NUR ---
ED Nurse Note: Sonali walked into ED c/o lower abdminal pain, patient states that she recently found out that she was yesterday and has been experiencing aching pain. patient rates her pain a 8/10. staets that shes had 1 episode of vomiting in the morning yesterday. patient is alert and oriented x4, ambulatory with a steady gait, VSS
[2019-06-11 00:12] VITALS: BP 132/68
--- NOTE | 2019-06-11 00:32 | Emergency Room Report ---
History of Present Illness General Chief Complaint: Abdominal Pain Source: Patient Present Illness HPI This is a 29-year-old female with no past medical history. She presents with chief complaint of upper quadrant cramping pain with nausea and vomiting. She is found out that she is by home test. She is 3 days late on her menstruation. No vaginal bleeding. No pelvic pain. No diarrhea. Pain is crampy in nature. No radiation. Allergies: Coded Allergies: AMPICILLIN (Verified Allergy, Severe, Anaphylaxis, 11/03/17) Patient History Past Medical History: see triage record, old chart reviewed Past Surgical History: other Pertinent Family History: none Social History: Denies: smoking Last Menstrual Period: 05/09/19 Now: Yes : 3 Para: 2 Immunizations: other Reviewed Nursing Documentation: PMH: Agreed; PSxH: Agreed Nursing Documentation-PMH Past Medical History: No Stated History Review of Systems Eye: Denies: eye pain, blurred vision ENT: Denies: ear pain, nose congestion, throat swelling Respiratory: Denies: cough, shortness of breath Cardiovascular: Denies: chest pain, palpitations Gastrointestinal: Reports: abdominal pain, nausea, vomiting; Denies: diarrhea Musculoskeletal: Denies: back pain, joint pain Skin: Denies: rash Neurological: Denies: headache, numbness Endocrine: Denies: increased thirst, increased urine Hematologic/Lymphatic: Denies: easy bruising All Other Systems: negative except mentioned in HPI Physical Exam Vital Signs Date Time Temp Pulse Resp B/P (MAP) Pulse Ox O2 Delivery O2 Flow Rate FiO2 06/11/19 00:00 98.6 92 18 132/68 (89) 98 Room Air Vitals normal Sp02 EP Interpretation: reviewed, normal General Appearance: well appearing, no apparent distress, alert Head: normocephalic, atraumatic Eyes: bilateral eye PERRL, bilateral eye EOMI ENT: hearing grossly normal, normal pharynx Neck: full range of motion, supple, no meningismus Respiratory: chest non-tender, lungs clear, normal breath sounds Cardiovascular #1: regular rate, rhythm, no murmur Gastrointestinal: normal bowel sounds, non tender, no mass, no organomegaly, no bruit, non-distended Musculoskeletal: back normal, gait/station normal, normal range of motion Psychiatric: mood/affect normal Medical Decision Making Diagnostic Impression: Primary Impression: Threatened Additional Impression: Acute hypokalemia ER Course Patient presents with abdominal pain and vomiting. She is very early in . Possibly 4 weeks or less. She has cramping pain and mostly supraumbilical. I do not suspect an ectopic or torsion. She felt better now. Will discharge home with close follow-up. Told patient to come back if increasing pain, vaginal bleeding or syncope. Hypokalemia probably secondary to vomiting. Last Vital Signs Date Time Temp Pulse Resp B/P (MAP) Pulse Ox O2 Delivery O2 Flow Rate FiO2 06/11/19 00:12 92 18 Room Air 06/11/19 00:12 98.6 132/68 98 Status: improved Disposition: HOME, SELF-CARE Condition: Stable Scripts [id number]/Iron Fumarate/Fa/Dss ( 19 TABLET) 1 Each Tablet 1 EACH PO DAILY, #100 TAB Prov: Roosevelt Castillo MD 06/11/19 Ondansetron (Zofran) 4 Mg Tablet 4 MG ORAL Q6H PRN for Nausea & Vomiting, #30 TAB 0 Refills Prov: Roosevelt Castillo MD 06/11/19 Patient Instructions: Abdominal Pain During Additional Instructions: Follow-up with your doctor in a week. Return for increasing pain, vaginal bleeding or any concern. Roosevelt Castillo MD Jun 11, 2019 00:32
[2019-06-11 00:49] LABS: BASOPHILS % (AUTO) 0.9 % (0.0-2.0); EOSINOPHILS % (AUTO) 1.3 % (0.0-3.0); HEMATOCRIT 33.5 % (37.0-47.0); HEMOGLOBIN 10.3 G/DL (12.0-16.0); LYMPHOCYTES % (AUTO) 29.9 % (20.0-45.0); MEAN CORPUSCULAR VOLUME 71 FL (80-99); MONOCYTES % (AUTO) 7.3 % (1.0-10.0); NEUTROPHILS % (AUTO) 60.7 % (45.0-75.0); PLATELET COUNT 334 K/UL (150-450); RED BLOOD COUNT 4.74 M/UL (4.20-5.40); RED CELL DISTRIBUTION WIDTH 15.9 % (11.6-14.8); WHITE BLOOD COUNT 8.1 K/UL (4.8-10.8)
[2019-06-11 01:04] LABS: APPEARANCE,URINE SLIGHTLY CLOUDY; BILIRUBIN, URINE NEGATIVE (NEGATIVE); GLUCOSE, URINE (UA) NEGATIVE (NEGATIVE); KETONES,URINE 1+ (NEGATIVE); LEUKOCYTE ESTERASE ,URINE NEGATIVE (NEGATIVE); NITRITE,URINE NEGATIVE (NEGATIVE); PH,URINE 5 (4.5-8.0); PROTEIN,URINE 2+ (NEGATIVE); UROBILINOGEN,URINE 1 MG/DL (0.0-1.0)
[2019-06-11 01:06] LABS: COLOR,URINE YELLOW
[2019-06-11 01:09] LABS: ANION GAP 11 mmol/L (5-15); BLOOD UREA NITROGEN 9 mg/dL (7-18); CALCIUM 9.2 MG/DL (8.5-10.1); CARBON DIOXIDE 26 MMOL/L (21-32); CHLORIDE 102 MMOL/L (98-107); CREATININE 0.7 MG/DL (0.55-1.30); POTASSIUM 2.9 MMOL/L (3.5-5.1); SODIUM 139 MMOL/L (136-145)
[2019-06-11 01:12] LABS: ALANINE AMINOTRANSFERASE 13 U/L (12-78); ALBUMIN 4.1 G/DL (3.4-5.0); ALKALINE PHOSPHATASE 78 U/L (46-116); ASPARTATE AMINO TRANSFERASE 12 U/L (15-37); BILIRUBIN,TOTAL 0.4 MG/DL (0.2-1.0)
[2019-06-11] MEDS ORDERED: ZOFRAN4 MG ORAL (01:43)
[2019-06-11 01:45] VITALS: BP 125/70
== END 2019-06-11 01:45 | disposition home or self-care (01) ==
LOC: EMR 06-11 00:22
DX: O20.0 Threatened abortion (principal); Z3A.01 Less than 8 weeks gestation of pregnancy; O26.891 Other specified pregnancy related conditions, first trimester; E87.6 Hypokalemia; Z88.1 Allergy status to other antibiotic agents
CPT/HCPCS: 36415; 80053; 81003; 81025; 83690; 84702; 85025; 96361; 96374; 99284; J2405; J8499

== ENCOUNTER 2019-07-02 19:29 | Emergency (ER) | payer MEDICAID ==
[~2019-07-02] VITALS: Ht 157.5 cm; Wt 94.8 kg
[~2019-07-02 19:29] MED LIST changes: +PRENATABS RX T1 EACH PO; +PRENATAL 19 TA1 EAC1 PO
[2019-07-02 20:00] VITALS: BP 155/78
--- NOTE | 2019-07-02 20:15 | NUR ---
ED Nurse Note: US by bed side
[2019-07-02 20:19] LABS: BASOPHILS % (AUTO) 0.6 % (0.0-2.0); EOSINOPHILS % (AUTO) 1.1 % (0.0-3.0); HEMATOCRIT 31.8 % (37.0-47.0); HEMOGLOBIN 10.1 G/DL (12.0-16.0); LYMPHOCYTES % (AUTO) 23.3 % (20.0-45.0); MEAN CORPUSCULAR VOLUME 72 FL (80-99); MONOCYTES % (AUTO) 6.1 % (1.0-10.0); PLATELET COUNT 259 K/UL (150-450); RED BLOOD COUNT 4.39 M/UL (4.20-5.40); RED CELL DISTRIBUTION WIDTH 16.4 % (11.6-14.8); WHITE BLOOD COUNT 9.5 K/UL (4.8-10.8)
[2019-07-02 20:25] VITALS: BP 118/68
--- NOTE | 2019-07-02 20:26 | NUR ---
ED Nurse Note: Patient walked in to ER c/o left lower abdominal pain 07/09. Stated that 7 weeks . AAO x4, VSS at this time, skin is dry warm to touch.
[2019-07-02 20:29] LABS: APPEARANCE,URINE CLEAR; BILIRUBIN, URINE NEGATIVE (NEGATIVE); GLUCOSE, URINE (UA) NEGATIVE (NEGATIVE); KETONES,URINE NEGATIVE (NEGATIVE); LEUKOCYTE ESTERASE ,URINE NEGATIVE (NEGATIVE); NITRITE,URINE NEGATIVE (NEGATIVE); PH,URINE 6 (4.5-8.0); PROTEIN,URINE NEGATIVE (NEGATIVE); UROBILINOGEN,URINE 1 MG/DL (0.0-1.0)
[2019-07-02 20:30] LABS: COLOR,URINE YELLOW
[2019-07-02 20:31] LABS: ANION GAP 11 mmol/L (5-15); BLOOD UREA NITROGEN 10 mg/dL (7-18); CALCIUM 9.3 MG/DL (8.5-10.1); CARBON DIOXIDE 25 MMOL/L (21-32); CHLORIDE 102 MMOL/L (98-107); CREATININE 0.7 MG/DL (0.55-1.30); POTASSIUM 3.7 MMOL/L (3.5-5.1); SODIUM 138 MMOL/L (136-145)
[2019-07-02 20:35] LABS: ALANINE AMINOTRANSFERASE 21 U/L (12-78); ALBUMIN 3.4 G/DL (3.4-5.0); ALBUMIN/GLOBULIN RATIO 0.7 (1.0-2.7); ALKALINE PHOSPHATASE 65 U/L (46-116); ASPARTATE AMINO TRANSFERASE 12 U/L (15-37); BILIRUBIN,TOTAL 0.2 MG/DL (0.2-1.0)
--- NOTE | 2019-07-02 20:45 | Emergency Room Report ---
History of Present Illness General Chief Complaint: Abdominal Pain Source: Patient Present Illness HPI 29-year-old female G3, P2 currently 7 weeks , ultrasound 06/30/2019 showing IUP presents with left lower quadrant pain that started 3 hours prior to arrival, no aggravating or alleviating factors, she noticed a cramping feeling moderate severity no radiation, no vaginal discharge no dysuria, no vaginal bleeding no nausea no vomiting patient was concerned and want to make sure the baby was okay Allergies: Coded Allergies: AMPICILLIN (Verified Allergy, Severe, Anaphylaxis, 07/02/19) Patient History Past Medical History: see triage record Last Menstrual Period: 05/09/19 Now: Yes - 7 wks : 3 Para: 2 Reviewed Nursing Documentation: PMH: Agreed; PSxH: Agreed Nursing Documentation-PMH Past Medical History: No Stated History Review of Systems All Other Systems: negative except mentioned in HPI Physical Exam Vital Signs Date Time Temp Pulse Resp B/P (MAP) Pulse Ox O2 Delivery O2 Flow Rate FiO2 07/02/19 19:32 98.8 79 18 118/68 (85) 99 Room Air Sp02 EP Interpretation: reviewed, normal General Appearance: well appearing, no apparent distress, alert Head: normocephalic, atraumatic Eyes: bilateral eye PERRL, bilateral eye EOMI ENT: uvula midline, moist mucus membranes Neck: supple, thyroid normal, supple/symm/no masses Respiratory: lungs clear, no respiratory distress, no retraction, no accessory muscle use Cardiovascular #1: normal peripheral pulses, regular rate, rhythm, no edema, no gallop, no murmur Gastrointestinal: non tender, soft, no guarding, no rebound Musculoskeletal: normal inspection Neurologic: alert, oriented x3 Psychiatric: mood/affect normal Skin: no rash, warm/dry Medical Decision Making Diagnostic Impression: Primary Impression: Abdominal pain during Qualified Codes: O26.891 - Other specified related conditions, first trimester; R10.9 - Unspecified abdominal pain ER Course Patient with left lower quadrant pain, concern for threatened versus nonspecific abdominal pain, versus diverticulitis, patient not tender on evaluation, ultrasound shows IUP with heart rate of 170, UA negative, labs show anemia, patient is currently taking vitamins. Disposition home with return precautions Laboratory Tests Test 07/02/19 20:00 White Blood Count 9.5 K/UL (4.8-10.8) Red Blood Count 4.39 M/UL (4.20-5.40) Hemoglobin 10.1 G/DL (12.0-16.0) L Hematocrit 31.8 % (37.0-47.0) L Mean Corpuscular Volume 72 FL (80-99) L Mean Corpuscular Hemoglobin 23.0 PG (27.0-31.0) L Mean Corpuscular Hemoglobin Concent 31.8 G/DL (32.0-36.0) L Red Cell Distribution Width 16.4 % (11.6-14.8) H Platelet Count 259 K/UL (150-450) Mean Platelet Volume 6.0 FL (6.5-10.1) L Neutrophils (%) (Auto) 69.0 % (45.0-75.0) Lymphocytes (%) (Auto) 23.3 % (20.0-45.0) Monocytes (%) (Auto) 6.1 % (1.0-10.0) Eosinophils (%) (Auto) 1.1 % (0.0-3.0) Basophils (%) (Auto) 0.6 % (0.0-2.0) Prothrombin Time 10.5 SEC (9.30-11.50) Prothrombin Time INR 1.0 (0.9-1.1) PTT 29 SEC (23-33) Urine Color Yellow Urine Appearance Clear Urine pH 6 (4.5-8.0) Urine Specific [place] 1.025 (1.005-1.035) Urine Protein Negative (NEGATIVE) Urine Glucose (UA) Negative (NEGATIVE) Urine Ketones Negative (NEGATIVE) Urine Blood Negative (NEGATIVE) Urine Nitrite Negative (NEGATIVE) Urine Bilirubin Negative (NEGATIVE) Urine Urobilinogen 1 MG/DL (0.0-1.0) H Urine Leukocyte Esterase Negative (NEGATIVE) Sodium Level 138 MMOL/L (136-145) Potassium Level 3.7 MMOL/L (3.5-5.1) Chloride Level 102 MMOL/L (98-107) Carbon Dioxide Level 25 MMOL/L (21-32) Anion Gap 11 mmol/L (5-15) Blood Urea Nitrogen 10 mg/dL (7-18) Creatinine 0.7 MG/DL (0.55-1.30) Estimate Glomerular Filtration Rate > 60 mL/min (>60) Glucose Level 91 MG/DL (74-106) Calcium Level 9.3 MG/DL (8.5-10.1) Total Bilirubin 0.2 MG/DL (0.2-1.0) Aspartate Amino Transferase (AST) 12 U/L (15-37) L Alanine Aminotransferase (ALT) 21 U/L (12-78) Alkaline Phosphatase 65 U/L (46-116) Total Protein 8.0 G/DL (6.4-8.2) Albumin 3.4 G/DL (3.4-5.0) Globulin 4.6 g/dL Albumin/Globulin Ratio 0.7 (1.0-2.7) L Lipase 86 U/L (73-393) CT/MRI/US Diagnostic Results CT/MRI/US Diagnostic Results : Impression EXAM: US Pelvis Complete, Transabdominal CLINICAL HISTORY: PAIN TECHNIQUE: Real-time transabdominal pelvic ultrasound (complete) with image documentation. COMPARISON: No relevant prior studies available. FINDINGS: Uterus/cervix: Uterus measures about 10.9 x 7.2 x 7.4 cm. Hypoechoic lobulated contour in the fundus on image 2048 may suggest fibroid. Right ovary: Right ovary measures about 2.9 x 3.2 x 2.1 cm. Normal blood flow. Left ovary: Left ovary measures about 2.3 x 1.6 x 1.9 cm. Normal blood flow. Free fluid: No free fluid. Other findings: Single live intrauterine with an estimated gestational age of 7 weeks 2 days per crown-rump length measurement of 1.12 cm. heart rate is 170. IMPRESSION: Single live intrauterine with an estimated gestational age of 7 weeks 2 days per crown-rump length measurement of 1.12 cm. Estimated due date is . Radiologist: Ty Valdez M.D. Electronically Signed: 07/02/19 21:18 Study ready at 20:50 and initial results transmitted at 21:18 Last Vital Signs Date Time Temp Pulse Resp B/P (MAP) Pulse Ox O2 Delivery O2 Flow Rate FiO2 07/02/19 20:25 98.8 18 118/68 99 Room Air 07/02/19 20:00 79 Disposition: HOME, SELF-CARE Condition: Stable Referrals: [facility] Patient Instructions: Abdominal Pain During , First Trimester of , [id number] Additional Instructions: The patient was provided with discharge instructions, notified to follow-up with a primary care doctor and or specialist in the next 24-48 hours, and to return to the ED if they have worsening of their symptoms. Please note that this report is being documented using DRAGON technology. This can lead to erroneous entry secondary to incorrect interpretation by the dictating instrument. PLEASE FOLLOW-UP WITH YOUR OBGYN SOON POSSIBLE Baron Zelaya MD Jul 02, 2019 20:45
--- NOTE | 2019-07-02 21:19 | Diagnostic Imaging Report ---
EXAM: US Pelvis Complete, Transabdominal CLINICAL HISTORY: PAIN TECHNIQUE: Real-time transabdominal pelvic ultrasound (complete) with image documentation. COMPARISON: No relevant prior studies available. FINDINGS: Uterus/cervix: Uterus measures about 10.9 x 7.2 x 7.4 cm. Hypoechoic lobulated contour in the fundus on image 2048 may suggest fibroid. Right ovary: Right ovary measures about 2.9 x 3.2 x 2.1 cm. Normal blood flow. Left ovary: Left ovary measures about 2.3 x 1.6 x 1.9 cm. Normal blood flow. Free fluid: No free fluid. Other findings: Single live intrauterine with an estimated gestational age of 7 weeks 2 days per crown-rump length measurement of 1. 12 cm. heart rate is 170. IMPRESSION: Single live intrauterine with an estimated gestational age of 7 weeks 2 days per crown-rump length measurement of 1.12 cm. Estimated due date is 02/13/20.
[2019-07-02 21:25] VITALS: BP 118/68
== END 2019-07-02 22:00 | disposition home or self-care (01) ==
LOC: EMR 22:00
DX: O26.891 Other specified pregnancy related conditions, first trimester (principal); R10.32 Left lower quadrant pain; Z3A.01 Less than 8 weeks gestation of pregnancy; Z88.0 Allergy status to penicillin
CPT/HCPCS: 36415; 76856; 80053; 81003; 83690; 85025; 85610; 85730; 86850; 86900; 86901; 99284

== ENCOUNTER 2019-08-20 06:12 | Emergency (ER) | payer MEDICAID ==
[~2019-08-20] VITALS: Ht 157.5 cm; Wt 96.2 kg
[2019-08-20 06:22] VITALS: BP 109/67
--- NOTE | 2019-08-20 06:22 | NUR ---
ED Nurse Note: PT WALKED IN TO ED C/O 2 BOILS LIKE BUMPS TO HER RIGHT ARM PIT AREA. STARTED ABOUT A WEEK AGO. PT STATED THAT SHE IS 12WEEKS . NO STATED MEDICAL HISTORY. ALERT AND ORIENTED, VERBALLY RESPONISVE. NO SOB. AFEBRILE. VSS.
[2019-08-20] MEDS ORDERED: Bactrim-DS 1 tab ORAL ONE (06:30)
[2019-08-20] MEDS ORDERED: Neosporin Oint Ud Pkt TOPIC ONE (06:30)
--- NOTE | 2019-08-20 06:32 | Emergency Room Report ---
History of Present Illness General Chief Complaint: Skin Rash/Abscess Source: Patient Present Illness HPI The patient presents with 2 areas of swelling underneath her right armpit. They have been progressing over the week. Both areas are draining on their own. She rates the pain 10/10 in aching and burning. The pain is not radiating. Denies any fevers or chills. She has had prior abscesses in the past one on her neck and a pilonidal cyst. She did not take any medication for the pain. Patient is 3 months . She denies vaginal bleeding discharge or dysuria. There is no abdominal pain. She has had some nausea and vomiting. Does not feel nauseated at this time. No chest pain, shortness of breath, sore throat or diarrhea. She denies headache. Allergies: Coded Allergies: AMPICILLIN (Verified Allergy, Severe, Anaphylaxis, 07/02/19) Patient History Past Medical History: see triage record Social History: Denies: smoking - Former Social History Narrative Has 3-year-old and 11-year-old boys at home Last Menstrual Period: 05/09/19 Now: Yes : 3 Para: 2 Reviewed Nursing Documentation: PMH: Agreed; PSxH: Agreed Nursing Documentation-PMH Past Medical History: No Stated History Hx Cardiac Problems: No Hx Hypertension: No Hx Pacemaker: No Hx Asthma: No Hx COPD: No Hx Diabetes: No Hx Cancer: No Hx Gastrointestinal Problems: No Hx Dialysis: No History Of Psychiatric Problem: No Hx Neurological Problems: No Hx Cerebrovascular Accident: No Hx Seizures: No Review of Systems All Other Systems: negative except mentioned in HPI Physical Exam Vital Signs Date Time Temp Pulse Resp B/P (MAP) Pulse Ox O2 Delivery O2 Flow Rate FiO2 08/20/19 06:16 97.9 77 18 109/67 (81) 98 Room Air Sp02 EP Interpretation: reviewed, normal General Appearance: well appearing, no apparent distress, GCS 15, non-toxic Head: normocephalic Eyes: bilateral eye normal inspection, bilateral eye PERRL, bilateral eye EOMI ENT: moist mucus membranes Neck: full range of motion Respiratory: speaking full sentences Cardiovascular #1: regular rate, rhythm Cardiovascular #2: 2+ radial (L) Gastrointestinal: normal inspection, normal bowel sounds, non tender Musculoskeletal: gait/station normal Neurologic: alert, oriented x3, grossly normal Psychiatric: mood/affect normal Skin: other - 2 draining abscesses right axillary area with evidence of prior shaving of underarm hair. There is no erythema. There is no fluctuance but there are some indurated lymph nodes Lymphatic: axilla node tender (R) Medical Decision Making Diagnostic Impression: Primary Impression: Axillary abscess Additional Impression: Early stage of ER Course Patient presents with 2 draining abscesses in the right axillary area. At this time as the abscesses are draining no incision and drainage is necessary. However oral antibiotics are indicated. Also topical antibiotics will be applied. As she is complaining of 10/10 pain Tylenol will be given. We are limited with what we can use for analgesia because she is 3 months . Discussed treatment plan with patient. Patient is stable for outpatient observation and treatment. Last Vital Signs Date Time Temp Pulse Resp B/P (MAP) Pulse Ox O2 Delivery O2 Flow Rate FiO2 08/20/19 06:42 97.9 78 18 109/67 98 Room Air Status: improved Disposition: HOME, SELF-CARE Condition: Improved Scripts Bacitracin (Bacitracin) 28.4 Gm Oint...g. 1 APPLIC TOPIC BID, #20 GM Prov: Jose Herron MD 08/20/19 Hydrocodone Bit/Acetaminophen 5-325* (NORCO 5-325*) 1 Each Tablet 1 TAB ORAL Q6H PRN for For Pain, #10 TAB 0 Refills Prov: Jose Herron MD 08/20/19 Trimethoprim/Sulfamethoxazole 160/800* (BACTRIM DS TABLET*) 1 Each Tablet 1 TAB ORAL Q12H, #14 TAB 0 Refills Prov: Jose eHrron MD 08/20/19 Jose Herron MD Aug 20, 2019 06:32
[2019-08-20] MEDS ORDERED: BACITRACIN15 GM TOPIC (06:34)
[2019-08-20] MEDS ORDERED: NORCO 5-325 TA1 EACH ORAL (06:34)
[2019-08-20] MEDS ORDERED: BACTRIM DS TAB1 EAC1 ORAL (06:34)
[2019-08-20 06:42] VITALS: BP 109/67
--- NOTE | 2019-08-20 06:42 | NUR ---
ED Nurse Note: Pt cleared by ermd for discharge. DC instructions/prescription was given and explained to pt and verbalized understanding of teachings. All medical deviecs such as ID band removed. Pt is AAO x4, ambulatory and left with all personal belongings.
[2019-08-20] MEDS ORDERED: Acetaminophen 500mg (ES) tab ORAL ONE (06:45)
== END 2019-08-20 06:42 | disposition home or self-care (01) ==
LOC: EMR 06:32
DX: O26.891 Other specified pregnancy related conditions, first trimester (principal); L02.411 Cutaneous abscess of right axilla; Z3A.00 Weeks of gestation of pregnancy not specified; Z88.0 Allergy status to penicillin; Z87.891 Personal history of nicotine dependence
CPT/HCPCS: 99282